=== PATIENT | female | born 1990 | race Caucasian/White ===

== ENCOUNTER 2023-08-02 11:50 | Emergency (ER) | payer BC ==
--- OUTSIDE RECORDS SUMMARY | 2023-08-02 11:55 | XMS REPORT | Continuity of Care Document ---
Author Name Unknown Address [address] [facility] [address] [place] [address] [facility] Address [address] [facility] [place] [address] Care Team Providers Care Refrigerator Glazier Name Role Phone CAMERON PEREZ Attending Clinician Un[facility]ending [facility]ician Mitzy Rashid Attending Clinician Unavailable Luis F_S Attending Clinician Unavailable DERRICK CONTRERAS Attending Clinician Unavailable RICHARD MCBRIDE Attending Clinician Unavailab RICHARD Thompson Attending Clinician Unavaila DEBI Ngo Attending Clinician Unavailable Luz Attending Clinician Unavailable Jose_Mila Attending Clinician Unavailable ZHENG Attending Clinician Unavailable NEREIDA MONDRAGON Attending Clinician Unavailable Eligio Attending Clinician Unavailable Allie Berry Attending Clinician Unavailable PROVIDER, ED TEMP Attending Clinician Unavailnatalia e Evans_S Admitting Clinician Unavailable Luz Admitting Clinician Unavailable Jose_W Admitting Clinician Unavailable ZHENG Admitting Clinician Unavailable Marquitaledge_L Admitting Clinician Unavailable Payers Payer Name Policy Type Policy Number Effective Date Expirati on Date Source [place] [id number] 2020 00:[place] [id number] 2020 00[place] [id number] 2020 00:00:00 Problems Condition Name Condition Details Condition Category Status Onset Date Resolution Date Last Treatment Date Treating Clinician Comments Source Pain of left ankle joint Pain of Left Ankle Joint Problem Active 2022-08 0-27 00:00: 00 [facility] COVID-19 Covid-19 Problem Active 9-05 00:00: 00 [facility] Pain of left hip joint Pain of Left Hip Joint Problem Active 5-05 00:00: 00 [facility] Migraine with aura Migraine with Aura Problem Active 9-07 00:00: 00 [facility] Neck pain Neck Pain Problem Active 9-07 00:00: 00 [facility] Nausea and vomiting Nausea and Vomiting Problem Active 9-07 00:00: 00 [facility] Viral screening Viral Screening Problem Active 5-03 00:00: 00 [facility] Asthma Asthma Problem Active 3-10 00:00: 00 [facility] Polycystic ovary syndrome Polycystic Ovary Syndrome Problem Active 3-10 00:00: 00 [facility] Exposure to SARS-CoV-2 Exposure to SARS-CoV-2 Problem Active 1-01 00:00: 00 [facility] Problem No known problems ASSERTION [facility] ETD (eustachia n tube dysfunctio n) ETD (eustachia n tube dysfunctio n) Problem Active [facility] ent [facility] Chronic sinusitis Chronic sinusitis Problem Active [facility] ent [facility] Allergic rhinitis Allergic rhinitis Problem [facility] Attention deficit hyperactiv ity disorder (ADHD), predominan tly inattentiv e type Attention deficit hyperactiv ity disorder (ADHD), predominan tly inattentiv e type Problem Active [facility] ent [facility] Environmen rosa allergies Environmen rosa allergies Problem Active [facility] Situationa l depression Situationa l depression Problem Active [facility] ent [facility] PCOS (polycysti c ovarian syndrome) PCOS (polycysti c ovarian syndrome) Problem Active [facility] ent [facility] Amenorrhea Amenorrhea Problem Active [facility] Atypical migraine Atypical migraine Problem Active [facility] Insulin resistance Insulin resistance Problem Active [facility] Anxiety Anxiety Problem Active [facility] Hypoglycem ia Hypoglycem ia Problem Active [facility] Allergies, Adverse Reactions, Alerts Allergy Name Allergy Type Status Severity Reaction(s) Onset Date Inactive Date Treating Clinician Comments Source No Known Drug Allergie s Allergy to Substanc e Active 01-09 00:00: 00 [facility] House Dust Allergy to substanc e Active Moderate, Moderate, Moderate to severe, Mild to moderate Cough, Hives, Itching, Wheezing [facility] Social History Smoking Status Start Date Stop Date Source Unknown if ever smoked [facility] Never Smoker [facility] Medications Ordered Medication Name Filled Medication Name Start Date Stop Date Current Medication? Ordering Clinician Indication Dosage Frequency Signature (SIG) Comments Components Source promethazin e 25 mg/mL injection solutionTak e 1 mL by injection route. promethazin e 25 mg/mL injection solutionTak e 1 mL by injection route. 05-02 14:16: 00 No promethazi ne 25 mg/mL injection solutionTa ke 1 mL by injection route. [facility] ketorolac 60 mg/2 mL intramuscul ar solutionInj ect 1 mL by intramuscul ar route. ketorolac 60 mg/2 mL intramuscul ar solutionInj ect 1 mL by intramuscul ar route. 05-02 14:15: 00 No ketorolac 60 mg/2 mL intramuscu lar solutionIn ject 1 mL by intramuscu lar route. [facility] Glucometer (any brand) and supplies Glucometer (any brand) and supplies 2017-08 00:00: 00 Yes Mitzy Ulloa Use as directed [facility] ent Clinics atorvastati n 20 mg tablet TAKE 1 TABLET BY MOUTH EVERY DAY atorvastati n 20 mg tablet TAKE 1 TABLET BY MOUTH EVERY DAY No atorvastat in 20 mg tablet TAKE 1 TABLET BY MOUTH EVERY DAY [facility] Dexilant 60 mg capsule, delayed release Take 1 capsule every day by oral route. Dexilant 60 mg capsule, delayed release Take 1 capsule every day by oral route. No 1capsul e(s) Q1D Dexilant 60 mg capsule, delayed release Take 1 capsule every day by oral route. [facility] ketorolac 60 mg/2 mL intramuscul ar solution Inject 1 mL by intramuscul ar route. ketorolac 60 mg/2 mL intramuscul ar solution Inject 1 mL by intramuscul ar route. No 1mL ketorolac 60 mg/2 mL intramuscu lar solution Inject 1 mL by intramuscu lar route. [facility] prednisone 20 mg tablet Take 1 tablet daily po x 3 days then 1/2 tablet daily po x 5 days prednisone 20 mg tablet Take 1 tablet daily po x 3 days then 1/2 tablet daily po x 5 days No prednisone 20 mg tablet Take 1 tablet daily po x 3 days then 1/2 tablet daily po x 5 days [facility] promethazin e 25 mg tablet Take 1 tablet every 8 hours by oral route as needed. promethazin e 25 mg tablet Take 1 tablet every 8 hours by oral route as needed. No 1 Q8H promethazi ne 25 mg tablet Take 1 tablet every 8 hours by oral route as needed. [facility] promethazin e 25 mg/mL injection solution Take 1 mL by injection route. promethazin e 25 mg/mL injection solution Take 1 mL by injection route. No 1mL promethazi ne 25 mg/mL injection solution Take 1 mL by injection route. [facility] propranolol ER 80 mg capsule,24 hr,extended release TAKE 1 CAPSULE BY MOUTH EVERY DAY propranolol ER 80 mg capsule,24 hr,extended release TAKE 1 CAPSULE BY MOUTH EVERY DAY No propranolo l ER 80 mg capsule,24 hr,extende d release TAKE 1 CAPSULE BY MOUTH EVERY DAY [facility] sumatriptan 25 mg tablet Take 1 tablet every day by oral route. sumatriptan 25 mg tablet Take 1 tablet every day by oral route. No 1 Q1D sumatripta n 25 mg tablet Take 1 tablet every day by oral route. [facility] tizanidine 4 mg tablet TAKE 1 TABLET BY MOUTH EVERY DAY AT BEDTIME tizanidine 4 mg tablet TAKE 1 TABLET BY MOUTH EVERY DAY AT BEDTIME No tizanidine 4 mg tablet TAKE 1 TABLET BY MOUTH EVERY DAY AT BEDTIME [facility] Zyrtec 10 mg tablet Take 1 tablet every day by oral route. Zyrtec 10 mg tablet Take 1 tablet every day by oral route. No 1 Q1D Zyrtec 10 mg tablet Take 1 tablet every day by oral route. [facility] pantoprazol e 40 mg tablet,grisel yed release TAKE 1 TABLET BY MOUTH EVERY DAY. TAKE 30 MINS BEFORE BREAKFAST OR FIRST MEAL OF THE DAY pantoprazol e 40 mg tablet,grisel yed release TAKE 1 TABLET BY MOUTH EVERY DAY. TAKE 30 MINS BEFORE BREAKFAST OR FIRST MEAL OF THE DAY No pantoprazo le 40 mg tablet,del ayed release TAKE 1 TABLET BY MOUTH EVERY DAY. TAKE 30 MINS BEFORE BREAKFAST OR FIRST MEAL OF THE DAY [facility] propranolol ER 120 mg capsule,24 hr,extended release Take 1 capsule every day by oral route. propranolol ER 120 mg capsule,24 hr,extended release Take 1 capsule every day by oral route. No 1capsul e(s) Q1D propranolo l ER 120 mg capsule,24 hr,extende d release Take 1 capsule every day by oral route. [facility] propranolol ER 80 mg capsule,24 hr,extended release TAKE 1 CAPSULE BY MOUTH EVERY DAY propranolol ER 80 mg capsule,24 hr,extended release TAKE 1 CAPSULE BY MOUTH EVERY DAY No propranolo l ER 80 mg capsule,24 hr,extende d release TAKE 1 CAPSULE BY MOUTH EVERY DAY [facility] sumatriptan 100 mg tablet TAKE 1 TABLET BY MOUTH AT ONSET OF HEADACHE. MAY REPEAT 1 TIME AFTER 2 HOURS NEEDED sumatriptan 100 mg tablet TAKE 1 TABLET BY MOUTH AT ONSET OF HEADACHE. MAY REPEAT 1 TIME AFTER 2 HOURS NEEDED No sumatripta n 100 mg tablet TAKE 1 TABLET BY MOUTH AT ONSET OF HEADACHE. MAY REPEAT 1 TIME AFTER 2 HOURS NEEDED [facility] sumatriptan 25 mg tablet Take 1 tablet every day by oral route. sumatriptan 25 mg tablet Take 1 tablet every day by oral route. No 1 Q1D sumatripta n 25 mg tablet Take 1 tablet every day by oral route. [facility] tizanidine 4 mg tablet TAKE 2 TABLETS BY MOUTH EVERY DAY AT BEDTIME NEEDED tizanidine 4 mg tablet TAKE 2 TABLETS BY MOUTH EVERY DAY AT BEDTIME NEEDED No tizanidine 4 mg tablet TAKE 2 TABLETS BY MOUTH EVERY DAY AT BEDTIME NEEDED [facility] azithromyci n 250 mg tablet TAKE 2 TABLETS (500 MG) BY ORAL ROUTE ONCE DAILY FOR 1 DAY THEN 1 TABLET (250 MG) BY ORAL ROUTE ONCE DAILY FOR 4 DAYS azithromyci n 250 mg tablet TAKE 2 TABLETS (500 MG) BY ORAL ROUTE ONCE DAILY FOR 1 DAY THEN 1 TABLET (250 MG) BY ORAL ROUTE ONCE DAILY FOR 4 DAYS No azithromyc in 250 mg tablet TAKE 2 TABLETS (500 MG) BY ORAL ROUTE ONCE DAILY FOR 1 DAY THEN 1 TABLET (250 MG) BY ORAL ROUTE ONCE DAILY FOR 4 DAYS [facility] benzonatate 200 mg capsule Take 1 capsule 3 times a day by oral route as needed. benzonatate 200 mg capsule Take 1 capsule 3 times a day by oral route as needed. No 1capsul e(s) TID benzonatat e 200 mg capsule Take 1 capsule 3 times a day by oral route as needed. [facility] dexamethaso ne 6 mg tablet Take 1 tablet every day by oral route. dexamethaso ne 6 mg tablet Take 1 tablet every day by oral route. No 1 Q1D dexamethas one 6 mg tablet Take 1 tablet every day by oral route. [facility] pantoprazol e 40 mg tablet,grisel yed release TAKE 1 TABLET BY MOUTH EVERY DAY. TAKE 30 MINS BEFORE BREAKFAST OR FIRST MEAL OF THE DAY pantoprazol e 40 mg tablet,grisel yed release TAKE 1 TABLET BY MOUTH EVERY DAY. TAKE 30 MINS BEFORE BREAKFAST OR FIRST MEAL OF THE DAY No pantoprazo le 40 mg tablet,del ayed release TAKE 1 TABLET BY MOUTH EVERY DAY. TAKE 30 MINS BEFORE BREAKFAST OR FIRST MEAL OF THE DAY [facility] propranolol ER 120 mg capsule,24 hr,extended release TAKE 1 CAPSULE BY MOUTH EVERY DAY propranolol ER 120 mg capsule,24 hr,extended release TAKE 1 CAPSULE BY MOUTH EVERY DAY No propranolo l ER 120 mg capsule,24 hr,extende d release TAKE 1 CAPSULE BY MOUTH EVERY DAY [facility] sumatriptan 100 mg tablet TAKE 1 TABLET BY MOUTH AT ONSET OF HEADACHE. MAY REPEAT 1 TIME AFTER 2 HOURS NEEDED sumatriptan 100 mg tablet TAKE 1 TABLET BY MOUTH AT ONSET OF HEADACHE. MAY REPEAT 1 TIME AFTER 2 HOURS NEEDED No sumatripta n 100 mg tablet TAKE 1 TABLET BY MOUTH AT ONSET OF HEADACHE. MAY REPEAT 1 TIME AFTER 2 HOURS NEEDED [facility] sumatriptan 25 mg tablet Take 1 tablet every day by oral route. sumatriptan 25 mg tablet Take 1 tablet every day by oral route. No 1 Q1D sumatripta n 25 mg tablet Take 1 tablet every day by oral route. [facility] tizanidine 4 mg tablet TAKE 2 TABLETS BY MOUTH EVERY DAY AT BEDTIME NEEDED tizanidine 4 mg tablet TAKE 2 TABLETS BY MOUTH EVERY DAY AT BEDTIME NEEDED No tizanidine 4 mg tablet TAKE 2 TABLETS BY MOUTH EVERY DAY AT BEDTIME NEEDED [facility] dexlansopra zole 60 mg capsule,bip hase delayed release TAKE 1 CAPSULE BY MOUTH DAILY dexlansopra zole 60 mg capsule,bip hase delayed release TAKE 1 CAPSULE BY MOUTH DAILY No dexlansopr azole 60 mg capsule,bi phase delayed release TAKE 1 CAPSULE BY MOUTH DAILY [facility] methylpredn isolone 4 mg tablets in a dose pack FOLLOW PACKAGE DIRECTIONS methylpredn isolone 4 mg tablets in a dose pack FOLLOW PACKAGE DIRECTIONS No methylpred nisolone 4 mg tablets in a dose pack FOLLOW PACKAGE DIRECTIONS [facility] propranolol ER 120 mg capsule,24 hr,extended release TAKE 1 CAPSULE BY MOUTH EVERY DAY propranolol ER 120 mg capsule,24 hr,extended release TAKE 1 CAPSULE BY MOUTH EVERY DAY No propranolo l ER 120 mg capsule,24 hr,extende d release TAKE 1 CAPSULE BY MOUTH EVERY DAY [facility] sumatriptan 100 mg tablet TAKE 1 TABLET BY MOUTH AT ONSET OF HEADACHE. MAY REPEAT 1 TIME AFTER 2 HOURS NEEDED sumatriptan 100 mg tablet TAKE 1 TABLET BY MOUTH AT ONSET OF HEADACHE. MAY REPEAT 1 TIME AFTER 2 HOURS NEEDED No sumatripta n 100 mg tablet TAKE 1 TABLET BY MOUTH AT ONSET OF HEADACHE. MAY REPEAT 1 TIME AFTER 2 HOURS NEEDED [facility] tizanidine 4 mg tablet TAKE 2 TABLETS BY MOUTH EVERY DAY AT BEDTIME NEEDED tizanidine 4 mg tablet TAKE 2 TABLETS BY MOUTH EVERY DAY AT BEDTIME NEEDED No tizanidine 4 mg tablet TAKE 2 TABLETS BY MOUTH EVERY DAY AT BEDTIME NEEDED [facility] buspirone 10 mg tablet TAKE 1 TABLET BY MOUTH TWICE DAILY buspirone 10 mg tablet TAKE 1 TABLET BY MOUTH TWICE DAILY No buspirone 10 mg tablet TAKE 1 TABLET BY MOUTH TWICE DAILY [facility] dextroamphe tamine-amph etamine ER 10 mg 24hr capsule,ext end release dextroamphe tamine-amph etamine ER 10 mg 24hr capsule,ext end release No dextroamph etamine-am phetamine ER 10 mg 24hr capsule,ex tend release [facility] lorazepam 0.5 mg tablet TAKE 1 TABLET BY MOUTH EVERY 6 HOURS IF NEEDED FOR ANXIETY lorazepam 0.5 mg tablet TAKE 1 TABLET BY MOUTH EVERY 6 HOURS IF NEEDED FOR ANXIETY No lorazepam 0.5 mg tablet TAKE 1 TABLET BY MOUTH EVERY 6 HOURS IF NEEDED FOR ANXIETY [facility] metformin ER 500 mg tablet,exte nded release 24 hr TAKE 1 TABLET BY MOUTH EVERY DAY. metformin ER 500 mg tablet,exte nded release 24 hr TAKE 1 TABLET BY MOUTH EVERY DAY. No metformin ER 500 mg tablet,ext ended release 24 hr TAKE 1 TABLET BY MOUTH EVERY DAY. [facility] propranolol ER 60 mg capsule,24 hr,extended release TAKE 1 CAPSULE BY MOUTH EVERY DAY propranolol ER 60 mg capsule,24 hr,extended release TAKE 1 CAPSULE BY MOUTH EVERY DAY No propranolo l ER 60 mg capsule,24 hr,extende d release TAKE 1 CAPSULE BY MOUTH EVERY DAY [facility] Immunizations Ordered Immunization Name Filled Immunization Name Date Status Comments Source Tdap Tdap 2020-02-17 14:51:18 Completed [facility] Tdap Tdap 2020-02-17 00:00:00 Completed [facility] Tdap Tdap 2020-02-17 00:00:00 Completed [facility] Tdap Tdap Unknown Completed [facility] Vital Signs Vital Name Observation Time Observation Value Comments S ource BP Systolic 2023-06-21 00:00:00 118 mm[Hg] [facility] Body Weight 2023-06-21 00:00:00 3776 [oz_av] [facility] BMI (Body Mass Index) 2023-06-21 00:00:00 33.9 kg/m2 [facility] Height 2023-06-21 00:00:00 70 [in_i] [facility] BP Diastolic 2023-06-21 00:00:00 92 mm[Hg] [facility] Body Weight 2023-04-30 00:00:00 3776 [oz_av] [facility] Height 2023-04-30 00:00:00 70 [in_i] [facility] BMI (Body Mass Index) 2023-04-30 00:00:00 33.9 kg/m2 [facility] BP Diastolic 2022-12-28 00:00:00 69 mm[Hg] [facility] Height 2022-12-28 00:00:00 70 [in_i] [facility] BMI (Body Mass Index) 2022-12-28 00:00:00 33.9 kg/m2 [facility] BP Systolic 2022-12-28 00:00:00 96 mm[Hg] [facility] Body Weight 2022-12-28 00:00:00 3776 [oz_av] [facility] BP Diastolic 2022-05-02 00:00:00 81 mm[Hg] [facility] Height 2022-05-02 00:00:00 70 [in_i] [facility] BMI (Body Mass Index) 2022-05-02 00:00:00 33.4 kg/m2 [facility] BP Systolic 2022-05-02 00:00:00 114 mm[Hg] [facility] Body Weight 2022-05-02 00:00:00 3728 [oz_av] [facility] BP Diastolic 2022-03-23 00:00:00 76 mm[Hg] [facility] Height 2022-03-23 00:00:00 70 [in_i] [facility] BMI (Body Mass Index) 2022-03-23 00:00:00 34.1 kg/m2 [facility] BP Systolic 2022-03-23 00:00:00 109 mm[Hg] [facility] Body Weight 2022-03-23 00:00:00 3808 [oz_av] [facility] BP Diastolic 2021-12-28 00:00:00 81 mm[Hg] [facility] Height 2021-12-28 00:00:00 70 [in_i] [facility] BMI (Body Mass Index) 2021-12-28 00:00:00 34.6 kg/m2 [facility] BP Systolic 2021-12-28 00:00:00 117 mm[Hg] [facility] Body Weight 2021-12-28 00:00:00 241.3 [lb_av] [facility] BP Diastolic 2021-12-26 00:00:00 84 mm[Hg] [facility] Height 2021-12-26 00:00:00 70 [in_i] [facility] BMI (Body Mass Index) 2021-12-26 00:00:00 34.4 kg/m2 [facility] BP Systolic 2021-12-26 00:00:00 115 mm[Hg] [facility] Body Weight 2021-12-26 00:00:00 3840 [oz_av] [facility] BP Diastolic 2021-12-07 00:00:00 77 mm[Hg] [facility] Height 2021-12-07 00:00:00 70 [in_i] [facility] BMI (Body Mass Index) 2021-12-07 00:00:00 34.3 kg/m2 [facility] BP Systolic 2021-12-07 00:00:00 105 mm[Hg] [facility] Body Weight 2021-12-07 00:00:00 3824 [oz_av] [facility] BP Diastolic 2021-12-06 00:00:00 84 mm[Hg] [facility] Height 2021-12-06 00:00:00 70 [in_i] [facility] BMI (Body Mass Index) 2021-12-06 00:00:00 34.7 kg/m2 [facility] BP Systolic 2021-12-06 00:00:00 132 mm[Hg] [facility] Body Weight 2021-12-06 00:00:00 242 [lb_av] [facility] BP Diastolic 2021-11-02 00:00:00 72 mm[Hg] [facility] Height 2021-11-02 00:00:00 70 [in_i] [facility] BMI (Body Mass Index) 2021-11-02 00:00:00 34.1 kg/m2 [facility] BP Systolic 2021-11-02 00:00:00 105 mm[Hg] [facility] Body Weight 2021-11-02 00:00:00 3808 [oz_av] [facility] Height 2021-09-06 00:00:00 70 [in_i] [facility] BMI (Body Mass Index) 2021-09-06 00:00:00 32.9 kg/m2 [facility] Body Weight 2021-09-06 00:00:00 3664 [oz_av] [facility] Height 2021-08-24 00:00:00 70 [in_i] [facility] BMI (Body Mass Index) 2021-08-24 00:00:00 32.9 kg/m2 [facility] Body Weight 2021-08-24 00:00:00 3664 [oz_av] [facility] BP Diastolic 2021-06-30 00:00:00 89 mm[Hg] [facility] Height 2021-06-30 00:00:00 70 [in_i] [facility] BMI (Body Mass Index) 2021-06-30 00:00:00 32.9 kg/m2 [facility] BP Systolic 2021-06-30 00:00:00 132 mm[Hg] [facility] Body Weight 2021-06-30 00:00:00 229 [lb_av] [facility] BP Diastolic 2021-05-22 00:00:00 87 mm[Hg] [facility] Height 2021-05-22 00:00:00 70 [in_i] [facility] BMI (Body Mass Index) 2021-05-22 00:00:00 32.2 kg/m2 [facility] BP Systolic 2021-05-22 00:00:00 121 mm[Hg] [facility] Body Weight 2021-05-22 00:00:00 3593 [oz_av] [facility] Height 2021-06-28 12:03:18 [facility] Weight Measured 2021-06-28 12:03:[address] [facility] Body Temperature 2021-06-28 12:03:[address] [facility] Heart Rate 2021-06-28 12:03:18 [facility] Respiratory Rate 2021-06-28 12:03:[address] [facility] O2 % BldC Oximetry 2021-06-28 12:03:[address] [facility] BP Systolic 2021-06-28 12:03:[address] [facility] BP Diastolic 2021-06-28 12:03:18 [facility] BMI (Body Mass Index) 2021-06-28 12:03:18 [facility] Procedures Procedure Date / Time Performed Performing Clinicia n Source XR, ankle, 3 or more view 2023-06-21 00:00:00 [facility] MRI, cervical spine, w/o contrast 2022-05-02 00:00:00 [facility] MRI, internal auditory canal, w/wo contrast 2021-12-06 00:00:00 [facility] Upper GI Endoscopy 2021-11-23 00:00:00 [facility] Unlisted Px Accessory Sinus 2017-08-26 00:00:00 [facility] Extraction of [place] Tooth [facility] Sinusotomy, Multiple [facility] Plan of Care Planned Activity Planned Date Details Comments Source Diagnostic Test Pending 2021-11-02 00:00:00 SARS CoV 2 RNA (COVID-19), QL, programs director-PCR, respiratory specimen [code = SARS CoV 2 RNA (COVID-19), QL, programs director-PCR, respiratory specimen] [facility] Outreach Program Instructions [facility] Encounters Start Date/Time End Date/Time Encounter Type Admission Type Attending Clinicians Care Facility Care Department Encounter ID Source 2023-06-24 10:30:00 Inpatient CAMERON RICKS [facility] [id number] [facility] 2023-06-11 10:30:00 Inpatient CAMERON RICKS [facility] [id number] [facility] 2023-01-01 09:15:39 Outpatient [facility] [id number] [facility] 2021-09-20 11:52:01 Outpatient Out of, [id number] [facility] Clinics 2021-09-20 11:05:06 [id number] [facility] Clin[facility] 2023-07-10 00:00:00 2023-07-10 00:00:00 Outpatient Evans_S [facility] [id number] [facility] 2023-06-21 00:00:00 2023-06-21 00:00:00 Outpatient Evans_S MMG [id number] [facility] 2023-06-21 00:00:00 2023-06-21 00:00:00 Outpatient Evans_S MMG [id number] [facility] 2023-06-21 00:00:00 2023-06-21 00:00:00 MANASA SerranoC: [address], [address], [place] [address] , Ph. MMG [facility] [facility] [id number] [facility] 2023-04-30 00:00:00 2023-04-30 00:00:00 MANASA SerranoC: [address], [address], [place] [address] , Ph. MMG [facility] [id number] [facility] 2023-02-14 15:30:00 2023-02-14 15:30:00 Outpatient DERRICK CONTRERAS [facility] [id number] [facility] 2023-02-11 14:00:00 2023-02-11 14:00:00 Outpatient DERRICK CONTRERAS [facility] [id number] [facility] 2023-01-15 09:31:00 2023-01-23 23:59:00 ambulatory [id number] [id number] [id number]-80c [id number] bcd [id number] 2023-01-15 09:31:00 2023-01-23 00:01:00 Outpatient RICHARD SANTIAGO [facility] [id number] [facility] 2023-01-12 00:00:00 2023-01-12 00:00:00 Outpatient Evans_S MMG [facility] [id number] 0905 [facility] 2022-12-28 00:00:00 2022-12-28 00:00:00 Outpatient Evans_S MMG [facility] [id number] [facility] 2022-12-28 00:00:00 2022-12-28 00:00:00 MINDY Serrano: [address] [place] [address], [address], [place] [address] , Ph. MMG [place] - [facility] [id number] [facility] 2022-06-28 11:00:00 2022-07-25 23:59:00 ambulatory [id number] -80cd-[id number] [id number] [id number]-80c [id number] d [id number] 2022-06-28 11:00:00 2022-07-25 00:01:00 Outpatient GERI RICHARD NAVA [facility] [id number] [facility] 2022-06-26 06:49:00 2022-06-26 06:49:00 Outpatient GERI FordeNAVARICHARD MAIN [facility] [id number] [facility] 2022-06-21 10:00:00 2022-06-25 23:59:00 ambulatory [id number]-[id number] [id number]-80c [id number] d [id number] 2022-06-21 10:00:00 2022-06-25 00:01:00 Outpatient GERI RICHARD NAVA [facility] [id number] [facility] 2022-06-19 10:00:00 2022-06-19 10:00:00 Outpatient GERI RICHARD NAVA [facility] [id number] [facility] 2022-06-14 10:00:00 2022-06-14 10:00:00 Outpatient RICHARD JACKMAN [facility] [id number] [facility] 2022-06-12 10:00:00 2022-06-12 10:00:00 Outpatient RICHARD JACKMAN [facility] [id number] [facility] 2022-06-05 14:00:00 2022-06-05 14:00:00 Outpatient RICHARD JACKMAN [facility] [id number] [facility] 2022-06-01 14:00:00 2022-06-01 14:00:00 Outpatient RICHARD JACKMAN [facility] [id number] [facility] 2022-05-23 13:07:00 2022-05-25 23:59:00 ambulatory [id number] -80cd-[id number] [id number] bcd [id number] 2022-05-07 00:00:00 2022-05-07 00:00:00 Outpatient Zuniga_S [facility] [id number] 0912 [facility] 2022-05-02 00:00:00 2022-05-02 00:00:00 Outpatient Zuniga_S [facility]G [facility] [id number] [facility] 2022-05-02 00:00:00 2022-05-02 00:00:00 MINDY Jorge: [address] [place] [phone] , Ph. MMG AL - [facility] [id number] [facility] 2022-03-29 10:10:00 2022-03-29 10:10:00 Outpatient DEBI MANSFIELD [facility] [id number] [facility] 2022-03-23 00:00:00 2022-03-23 00:00:00 MANASA JorgeC: [address], [place] [address] , Ph. Zuniga_S MMG [facility] 0729 [facility] 2022-01-13 00:00:00 2022-01-13 00:00:00 Outpatient Zuniga_S MMG MMG 05 [facility] 2022-01-01 03:25:00 2022-01-01 03:25:00 Outpatient Zuniga_S MMG MMG 0509 [facility] 2021-12-28 00:00:00 2021-12-28 00:00:00 Tez Garcia MD: [address], [address], [place] [address] , Ph. [facility] 0505 [facility] 2021-12-26 00:00:00 2021-12-26 00:00:00 MANASA JorgeC: [address], [place] [address] , Ph. Zuniga_S MMG [facility] 0503 [facility] 2021-12-19 01:51:00 2021-12-19 01:51:00 Outpatient Shield MMG MMG 0426 [facility] 2021-12-13 11:42:00 2021-12-13 11:42:00 Outpatient Shield MMG MMG 042 [facility] 2021-12-07 00:00:00 2021-12-07 00:00:00 Debi Carmona NP: [address], [place] [address] , Ph. Luz [facility] 0414 [facility] 2021-12-06 00:00:00 2021-12-06 00:00:00 Tez Garcia MD: [address], [address], [place] [address] , [facility]. [facility] 412 [facility] 2021-11-02 04:58:00 2021-11-02 04:58:00 Outpatient [facility] 2021-11-02 00:00:00 2021-11-02 00:00:00 Michael Coronel: [address] [place] [address] , Ph. [facility] [id number] [facility] 2021-11-01 05:19:00 2021-11-01 05:19:00 Outpatient [facility] 2021-09-06 00:00:00 2021-09-06 00:00:00 MANASA JorgeC: [address], [place] [address] , Ph. [facility]en [facility] [facility] 2021-08-24 00:00:00 2021-08-24 00:00:00 MANASA JorgeC: [address], [place] [address] , Ph. Zuniga_S [facility] 1230 [facility] 2021-08-02 11:02:00 2021-08-02 11:02:00 Outpatient NREEIDA ROGERS [facility] [id number] [facility] 2021-06-30 00:00:00 2021-06-30 00:00:00 Amanda Molina MD: [address], [place] [address] , Ph. [phone] Jesse_Warren [facility] 1105 [facility] 2021-05-22 00:00:00 2021-05-22 00:00:00 Debi Carmona NP: [address], [place] [address] , Ph. Luz [facility] 0927 [facility] 2020-03-22 13:00:00 2020-03-22 13:00:00 [facility]patient [facility] [id number] [facility] 2020-03-14 11:34:00 2020-03-14 11:34:00 Outpatient [facility] [id number] [facility] Clinics 2020-03-14 11:00:00 2020-03-14 11:00:[address] [facility] [facility] [id number] 2020-02-18 10:40:00 2020-02-18 10:40:00 Outpatient MEHOP [facility] [id number] [facility] 2020-02-17 04:50:00 2020-02-17 04:50:00 Outpatient CAHOP [facility] [id number] [facility] 2020-02-17 00:00:00 2020-02-17 00:00:00 Esme Redmond MD: [address] [place] [address] , Ph. [facility] [id number] [facility] 2020-02-16 01:24:00 2020-02-16 01:24:00 Outpatient [facility] [id number] [facility] 2019-10-13 15:30:00 2019-10-13 15:30:00 Outpatient [facility] [id number] [facility] ent Clinics 2019-09-28 12:00:00 2019-09-28 12:00:00 Outpatient [facility] [id number] [facility] ent Clinics 2019-01-11 11:00:00 2019-01-11 14:08:00 Departed Emergency ER PROVIDER, ED [id number]. [id number] [id number]. 1.2 [facility] [id number] [facility]) 2019-01-09 12:00:00 2019-01-09 12:00:00 Registered Surgical Day Care Allie Guardado 2.16.840. [id number]. 3.4991.3. 1.2 [facility] [id number] 90 [facility]) 2018-12-24 08:25:00 2018-12-24 08:25:00 Registered Clinical 2.16.840. [id number] 3.4991.3. .2 REFERENCE LAB [id number] 44 [facility] 2018-12-17 12:54:00 2018-12-17 12:54:00 Registered Clinical 2.16.840. [id number]. 3.4991.3. .2 REFERENCE LAB [id number] 70 [facility] Results Test Description Test Time Test Comments Results Result Co mments Source [facility]CoV+SARS-CoV-2 (COVID-19) Ag [Presence] in Respiratory specimen by Rapid [id number] 14:44:00* Test Item Value Reference Range Interpretation Comme nts SARS-CoV - 2 (test code = SA RS-CoV - 2) negative [facility]-CoV+SARS-CoV-2 (COVID-19) Ag [Presence] in Respiratory specimen by Rapid [id number] 14:44:00* Test Item Value Reference Range Interpretation Comme nts SARS-CoV - 2 (test code = SA RS-CoV - 2) negative [facility] GroupUrinalysis complete panel - [id number] 08:39:00* Test Item Value Reference Range Interpretation Comme nts Color of Urine by Auto (test code = 35707-5) yellow Appearance of Urine (test co de = 5767-9) clear clear Glucose [Presence] in Urine by Automated test strip (test code = 31304-2) negative negative Bilirubin.total [Mass/volume ] in Urine (test code = 1978-6) negative negative Ketones [Mass/volume] in Uri ne by Automated test strip (test code = 22500-8) negative negative Specific gravity of Urine by Automated test strip (test code = 70624-2) 1.031 1.003-1.030 H blood urine (test code = blo od urine) negative negative pH of Urine (test code = 2756-5) 6.000 5-9 protein urine (UA) (test cod e = protein urine (UA)) trace negative Urobilinogen [Presence] in Urine (test code = 33546-2) normal 0.2-1.0 Nitrite [Presence] in Urine by Test strip (test code = 5802-4) negative negative Leukocyte esterase [Presence ] in Urine by Automated test strip (test code = 68827-1) negative negative Erythrocytes [#/volume] in Urine by Automated count (test code = 798-9) =1-5 0-5 Leukocytes [#/area] in Urine sediment by Automated count (test code = 39581-0) =1-5 0-5 Epithelial cells [Presence] in Urine sediment by Light microscopy (test code = 98239-3) =1-5 0-5 Bacteria identified in Urine by Culture (test code = 630-4) none detected none detect Casts [#/area] in Urine sediment by Automated count (test code = 82421-2) =6-10 none detect H urine culture added? (test c ode = urine culture added?) no [facility] 2000 [facility] - Serum or Plasma 2021-12-07 08:39:00* Test Item Value Reference Range Interpretation Comme nts Glucose [Mass/volume] in Ser um or Plasma (test code = 2345-7) 92 mg/dL 74-106 Urea nitrogen [Mass/volume] in Serum or Plasma (test code = 3094-0) 9 mg/dL 6-20 osmolality calculated,serum (test code = osmolality calculated,serum) 276 mOsm/kg 280-300 L creatinine (test code = creatinine) 0.80 mg/dL 0.50-0.90 glomerular filtration rate ( test code = glomerular filtration rate) >60.00 Urea nitrogen/Creatinine [Ma ss Ratio] in Serum or Plasma (test code = 3097-3) 11.3 12.0-20.0 L sodium level (test code = so dium level) 139 mmol/L 135-145 potassium level (test code = potassium level) 4.4 mmol/L 3.5-5.2 chloride level (test code = chloride level) 103 mmol/L 98-108 CO2 (test code = CO2) 25 mmol/L 21-32 anion gap (test code = anion gap) 15.4 mEq/L 12.0-20.0 calcium level (test code = calcium level) 9.5 mg/dL 8.6-10.0 total protein (test code = t otal protein) 7.3 g/dL 6.6-8.7 albumin (test code = albumin) 4.5 g/dL 3.5-5.2 globulin (test code = globulin) 2.8 g/dL 1.5-4.5 A/G ratio (test code = A/G ratio) 1.6 >1.0 bilirubin,total (test code = bilirubin,total) 0.4 mg/dL 0.0-1.2 AST/SGOT (test code = AST/SGOT) 21 U/L 15-32 Alanine aminotransferase [Enzymatic activity/volume] in Serum or Plasma (test code = 1742-6) 33 U/L 0-33 Alkaline phosphatase [Enzyma tic activity/volume] in Serum or Plasma (test code = 6768-6) 50 U/L 35-105 [facility] 1996 panel - Serum or [id number] 08:39:00* Test Item Value Reference Range Interpretation Comme nts cholesterol level (test code = cholesterol level) 271 mg/dL 150-200 H triglycerides level (test co de = triglycerides level) 338 mg/dL <150 H HDL cholesterol (test code = HDL cholesterol) 39 mg/dL >65 L LDL cholesterol direct (test code = LDL cholesterol direct) 191 mg/dL <100 H cholesterol risk ratio (test code = cholesterol risk ratio) 6.948 [facility] HospitalUrinalysis complete panel - [id number] 08:39:00* Test Item Value Reference Range Interpretation Comme nts Color of Urine by Auto (test code = 67297-5) yellow Appearance of Urine (test co de = 5767-9) clear clear Glucose [Presence] in Urine by Automated test strip (test code = 48143-9) negative negative Bilirubin.total [Mass/volume ] in Urine (test code = 1978-6) negative negative Ketones [Mass/volume] in Uri ne by Automated test strip (test code = 43101-0) negative negative Specific gravity of Urine by Automated test strip (test code = 93528-9) 1.031 1.003-1.030 H blood urine (test code = blo od urine) negative negative pH of Urine (test code = 2756-5) 6.000 5-9 protein urine (UA) (test cod e = protein urine (UA)) trace negative Urobilinogen [Presence] in Urine (test code = 12792-7) normal 0.2-1.0 Nitrite [Presence] in Urine by Test strip (test code = 5802-4) negative negative Leukocyte esterase [Presence ] in Urine by Automated test strip (test code = 07248-3) negative negative Erythrocytes [#/volume] in Urine by Automated count (test code = 798-9) =1-5 0-5 Leukocytes [#/area] in Urine sediment by Automated count (test code = 16239-9) =1-5 0-5 Epithelial cells [Presence] in Urine sediment by Light microscopy (test code = 98924-0) =1-5 0-5 Bacteria identified in Urine by Culture (test code = 630-4) none detected none detect Casts [#/area] in Urine sediment by Automated count (test code = 42709-6) =6-10 none detect H urine culture added? (test c ode = urine culture added?) no [facility] 2000 panel - Serum or Plasma 2021-12-07 08:39:00* Test Item Value Reference Range Interpretation Comme nts Glucose [Mass/volume] in Ser um or Plasma (test code = 2345-7) 92 mg/dL 74-106 Urea nitrogen [Mass/volume] in Serum or Plasma (test code = 3094-0) 9 mg/dL 6-20 osmolality calculated,serum (test code = osmolality calculated,serum) 276 mOsm/kg 280-300 L creatinine (test code = creatinine) 0.80 mg/dL 0.50-0.90 glomerular filtration rate ( test code = glomerular filtration rate) >60.00 Urea nitrogen/Creatinine [Ma ss Ratio] in Serum or Plasma (test code = 3097-3) 11.3 12.0-20.0 L sodium level (test code = so dium level) 139 mmol/L 135-145 potassium level (test code = potassium level) 4.4 mmol/L 3.5-5.2 chloride level (test code = chloride level) 103 mmol/L 98-108 CO2 (test code = CO2) 25 mmol/L 21-32 anion gap (test code = anion gap) 15.4 mEq/L 12.0-20.0 calcium level (test code = calcium level) 9.5 mg/dL 8.6-10.0 total protein (test code = t otal protein) 7.3 g/dL 6.6-8.7 albumin (test code = albumin) 4.5 g/dL 3.5-5.2 globulin (test code = globulin) 2.8 g/dL 1.5-4.5 A/G ratio (test code = A/G ratio) 1.6 >1.0 bilirubin,total (test code = bilirubin,total) 0.4 mg/dL 0.0-1.2 AST/SGOT (test code = AST/SGOT) 21 U/L 15-32 Alanine aminotransferase [Enzymatic activity/volume] in Serum or Plasma (test code = 1742-6) 33 U/L 0-33 Alkaline phosphatase [Enzyma tic activity/volume] in Serum or Plasma (test code = 6768-6) 50 U/L 35-105 [facility] 1996 panel - Serum or [id number] 08:39:00* Test Item Value Reference Range Interpretation Comme nts cholesterol level (test code = cholesterol level) 271 mg/dL 150-200 H triglycerides level (test co de = triglycerides level) 338 mg/dL <150 H HDL cholesterol (test code = HDL cholesterol) 39 mg/dL >65 L LDL cholesterol direct (test code = LDL cholesterol direct) 191 mg/dL <100 H cholesterol risk ratio (test code = cholesterol risk ratio) 6.948 [facility] HospitalDifferential panel, method unspecified - [id number] 00:00:00NeutrophilsBandLymphocyteAtypical LymphMonocyteEosinophilBasophilMetamyelocyteMyelocytePromyelocyteBlastsNucleated Red Blood CellDifferential CommentAbs Neutrophil Count (Man)Abs Lymph Count (Man)AbsMonocyte Count (Man)Abs Eosinophil Count (Man)Abs Basophil Count (Man)Platelet EstimatePlatelet Morp hologyHypochromasiaPoikilocytosisAnisocytosisMicrocytosisMacrocytosisTarget CellsStomatocyteToxic GranulationBurr CellsHypersegmented PolysToxic Vacuolation [facility] W Auto Differential panel - [id number] 00:00:00 * Test Item Value Reference Range Interpretation Comme nts white blood count (test code = white blood count) 6.8 K/uL 4.0-11.5 red blood count (test code = red blood count) 4.71 M/uL 3.80-5.20 hemoglobin (test code = hemoglobin) 13.6 g/dL 10.5-15.7 hematocrit (test code = hematocrit) 42.5 % 34.0-50.0 MCV [Entitic volume] (test c ode = 86324-6) 90.2 fL 86.0-100.0 mean corpuscular hemoglobin (test code = mean corpuscular hemoglobin) 28.9 pg 26.2-33.4 mean corpuscular HGB conc (t est code = mean corpuscular HGB conc) 32.0 g/dL 30.0-34.0 red cell distribution width (test code = red cell distribution width) 13.2 % 12.0-15.5 platelet count (test code = platelet count) 304 K/uL 165-450 mean platelet volume (test c ode = mean platelet volume) 11.7 fL 9.4-12.6 Segmented neutrophils/100 leukocytes in Blood (test code = 00817-1) 49.6 % 44.4-80.1 Immature granulocytes [#/vol ume] in Blood (test code = 89499-4) 0.03 K/uL 0.00-0.03 lymphocyte% (test code = lymphocyte%) 36.3 % 10.0-50.0 mono % (test code = mono %) 8.2 % 3.6-12.0 eos % (test code = eos %) 5.1 % 0.0-5.4 Basophils/100 leukocytes in Specimen (test code = 57783-9) 0.4 % 0.1-1.2 Band form neutrophils [#/vol ume] in Blood (test code = 25153-4) 3.37 K/uL 1.56-6.13 Lymphocytes [#/volume] in Sp ecimen by Automated count (test code = 13357-6) 2.47 K/uL 1.18-3.74 mono # (test code = mono #) 0.56 K/uL 0.24-0.86 eos # (test code = eos #) 0.35 K/uL 0.04-0.36 basophil # (test code = baso errol #) 0.03 K/uL 0.01-0.08 NRBC% (test code = NRBC%) 0 /100 WBC 0-0.2 NRBC# (test code = NRBC#) 0 K/uL [facility] HospitalDifferential panel, method unspecified - [id number] 00:00:00NeutrophilsBandLymphocyteAtypical LymphMonocyteEosinophilBasophilMetamyelocyteMyelocytePromyelocyteBlastsNucleated Red Blood CellDifferential CommentAbs Neutrophil Count (Man)Abs Lymph Count (Man)AbsMonocyte Count (Man)Abs Eosinophil Count (Man)Abs Basophil Count (Man)Platelet EstimatePlatelet Morp hologyHypochromasiaPoikilocytosisAnisocytosisMicrocytosisMacrocytosisTarget CellsStomatocyteToxic GranulationBurr CellsHypersegmented PolysToxic Vacuolation [facility] HospitalErythrocyte sedimentation [id number] 00:00:00* Test Item Value Reference Range Interpretation Comme nts erythrocyte sedimentation ra te (test code = erythrocyte sedimentation rate) 12 mm/HR 0.00-20 [facility] HospitalThyrotropin [Units/volume] in Serum or [id number] 00:00:00* Test Item Value Reference Range Interpretation Comme nts Thyrotropin [Units/volume] i n Serum or Plasma (test code = 3016-3) 1.60 uIU/mL 0.36-3.74 [facility] Hospital[facility] reactive protein [Mass/volume] in Serum or Plasma by High sensitivity [id number] 00:00:00* Test Item Value Reference Range Interpretation Comme nts C-reactive protein high sens . (test code = C-reactive protein high sens.) 1.2 mg/L 0.0-5.0 [facility] HospitalCobalamin (Vitamin B12) [Mass/volume] in Serum or Plasma 2021-12-07 00:00:00* Test Item Value Reference Range Interpretation Comme nts vitamin B12 (test code = vit marie B12) 739.0 pg/mL 211-946 folate (test code = folate) >20 4.78-24.2 [facility] HospitalNuclear Ab [Presence] in Serum by Immunofluorescence 2021-12-07 00:00:00* Test Item Value Reference Range Interpretation Comme nts YAZ (antinuclear antibodies) screen, ifa, serum (test code = YAZ (antinuclear antibodies) screen, ifa, serum) neg [facility] HospitalCBC W Auto Differential panel - [id number] 00:00:00 * Test Item Value Reference Range Interpretation Comme nts white blood count (test code = white blood count) 6.8 K/uL 4.0-11.5 red blood count (test code = red blood count) 4.71 M/uL 3.80-5.20 hemoglobin (test code = hemoglobin) 13.6 g/dL 10.5-15.7 hematocrit (test code = hematocrit) 42.5 % 34.0-50.0 MCV [Entitic volume] (test c ode = 29895-5) 90.2 fL 86.0-100.0 mean corpuscular hemoglobin (test code = mean corpuscular hemoglobin) 28.9 pg 26.2-33.4 mean corpuscular HGB conc (t est code = mean corpuscular HGB conc) 32.0 g/dL 30.0-34.0 red cell distribution width (test code = red cell distribution width) 13.2 % 12.0-15.5 platelet count (test code = platelet count) 304 K/uL 165-450 mean platelet volume (test c ode = mean platelet volume) 11.7 fL 9.4-12.6 Segmented neutrophils/100 leukocytes in Blood (test code = 60473-2) 49.6 % 44.4-80.1 Immature granulocytes [#/vol ume] in Blood (test code = 38287-1) 0.03 K/uL 0.00-0.03 lymphocyte% (test code = lymphocyte%) 36.3 % 10.0-50.0 mono % (test code = mono %) 8.2 % 3.6-12.0 eos % (test code = eos %) 5.1 % 0.0-5.4 Basophils/100 leukocytes in Specimen (test code = 48968-1) 0.4 % 0.1-1.2 Band form neutrophils [#/vol ume] in Blood (test code = 26362-1) 3.37 K/uL 1.56-6.13 Lymphocytes [#/volume] in Sp ecimen by Automated count (test code = 28569-7) 2.47 K/uL 1.18-3.74 mono # (test code = mono #) 0.56 K/uL 0.24-0.86 eos # (test code = eos #) 0.35 K/uL 0.04-0.36 basophil # (test code = baso errol #) 0.03 K/uL 0.01-0.08 NRBC% (test code = NRBC%) 0 /100 WBC 0-0.2 NRBC# (test code = NRBC#) 0 K/uL [facility] HospitalDifferential panel, method unspecified - [id number] 00:00:00NeutrophilsBandLymphocyteAtypical LymphMonocyteEosinophilBasophilMetamyelocyteMyelocytePromyelocyteBlastsNucleated Red Blood CellDifferential CommentAbs Neutrophil Count (Man)Abs Lymph Count (Man)AbsMonocyte Count (Man)Abs Eosinophil Count (Man)Abs Basophil Count (Man)Platelet EstimatePlatelet Morp hologyHypochromasiaPoikilocytosisAnisocytosisMicrocytosisMacrocytosisTarget CellsStomatocyteToxic GranulationBurr CellsHypersegmented PolysToxic Vacuolation [facility] HospitalErythrocyte sedimentation [id number] 00:00:00* Test Item Value Reference Range Interpretation Comme nts erythrocyte sedimentation ra te (test code = erythrocyte sedimentation rate) 12 mm/HR 0.00-20 [facility] HospitalThyrotropin [Units/volume] in Serum or [id number] 00:00:00* Test Item Value Reference Range Interpretation Comme nts Thyrotropin [Units/volume] i n Serum or Plasma (test code = 3016-3) 1.60 uIU/mL 0.36-3.74 [facility] HospitalC reactive protein [Mass/volume] in Serum or Plasma by High sensitivity [id number] 00:00:00* Test Item Value Reference Range Interpretation Comme nts C-reactive protein high sens . (test code = C-reactive protein high sens.) 1.2 mg/L 0.0-5.0 [facility] HospitalCobalamin (Vitamin B12) [Mass/volume] in Serum or Plasma 2021-12-07 00:00:00* Test Item Value Reference Range Interpretation Comme nts vitamin B12 (test code = vit marie B12) 739.0 pg/mL 211-946 folate (test code = folate) >20 4.78-24.2 [facility] HospitalNuclear Ab [Presence] in Serum by Immunofluorescence 2021-12-07 00:00:00* Test Item Value Reference Range Interpretation Comme [facility] YAZ (antinuclear antibodies) screen, ifa, serum (test code = YAZ (antinuclear antibodies) screen, ifa, serum) neg [facility] (COVID-19) Ag [Presence] in Respiratory specimen by Rapid [id number] 12:02:00* Test Item Value Reference Range Interpretation Comme [facility] SARS-CoV - 2 (test code = SA RS-CoV - 2) [facility] Mbwmsjib9708-83-44 10:29:00* Test Item Value Reference Range Interpretation Comme [facility] Chemistry - Specials (test code = HCGQ) 59525.33 mIU/mL See Ranges Males and Non females: Less than 10 mIU/mLPregnancy, weeks of gestation mIU/mL 0.2 - 1 week 5 - 50 1 - 2 weeks 50 - 500 2 - 3 weeks 100 - 5,000 3 - 4 weeks 500 - 10,000 4 - 5 weeks 1,000 - 50,000 5 - 6 weeks 10,000 - 100,000 6 - 8 weeks 15,000 - 200,000 2 - 3 months 10,000 - 100,000 Tkghzdieu8606-18-69 09:36:00* Test Item Value Reference Range Interpretation Comme [facility] Chemistry (test code = NA-T) 134 mmol/L 136-145 L Chemistry (test code = K-T) 4.4 mmol/L 3.5-5.1 N Chemistry (test code = CL) 103 mmol/L 98-107 N Chemistry (test code = CO2) 25 mmol/L 22-29 N Chemistry (test code = ANGP) 10 mmol/L 10-20 N Chemistry (test code = BUN) 8 mg/dL 7.0-18.7 N Chemistry (test code = CREATT) 0.74 mg/dL 0.6-1.1 N Chemistry (test code = EGFRMDRD) Greater than 90 Reference Range for Estimated GFR: Greater than 90 mL/min/1.73 m2NOTE:The MDRD equation has not been validated for use with theelderly (over 70 years of age), women, patientswith serious comorbid condition or persons with extremes ofbody size, muscle mass, or nutritional status. Chemistry (test code = GLU-T) 85 mg/dL 70-105 N Chemistry (test code = CA) 9.6 mg/dL 7.8-10.44 N Chemistry (test code = TBILI-T) 0.4 mg/dL 0.2-1.2 N Chemistry (test code = TP) 7.0 g/dL 6.0-8.3 N Chemistry (test code = ALB) 4.1 g/dL 3.5-5.0 N Chemistry (test code = GLOB) 2.9 g/dL 2.4-3.5 N Chemistry (test code = AG) 1.4 g/dL 1.2-2.2 N Chemistry (test code = ALP) 50 U/L 40-150 N Chemistry (test code = AST) 26 U/L 5-34 N Chemistry (test code = ALT) 42 U/L 8-55 N Chemistry - Wtlzddac2831-82-23 11:49:00* Test Item Value Reference Range Interpretation Comme [facility] Chemistry - Specials (test code = HCGQ) 06831.33 mIU/mL See Ranges Males and Non females: Less than 10 mIU/mLPregnancy, weeks of gestation mIU/mL 0.2 - 1 week 5 - 50 1 - 2 weeks 50 - 500 2 - 3 weeks 100 - 5,000 3 - 4 weeks 500 - 10,000 4 - 5 weeks 1,000 - 50,000 5 - 6 weeks 10,000 - 100,000 6 - 8 weeks 15,000 - 200,000 2 - 3 months 10,000 - 100,000 Laboratory Ypjqpvg0803-72-09 10:45:00* Test Item Value Reference Range Interpretation Comme [facility] 63263-9 (test code = 92175-9) 43824.33 mIU/mL [facility]Kakixtti2120-14-02 17:36:00* Test Item Value Reference Range Interpretation Comme [facility] Accuchek (test code = ACU) 80 mg/dL 70-110 N Ztdejhrdu0436-43-14 13:35:00* Test Item Value Reference Range Interpretation Comme [facility] Chemistry (test code = NA-T) 138 mmol/L 136-145 N Chemistry (test code = K-T) 4.6 mmol/L 3.5-5.1 N Chemistry (test code = CL) 106 mmol/L 98-107 N Chemistry (test code = CO2) 23 mmol/L 22-29 N Chemistry (test code = ANGP) 14 mmol/L 10-20 N Chemistry (test code = BUN) 9 mg/dL 7.0-18.7 N Chemistry (test code = CREATT) 0.77 mg/dL 0.6-1.1 N Chemistry (test code = EGFRMDRD) Greater than 90 Reference Range for Estimated GFR: Greater than 90 mL/min/1.73 m2NOTE:The MDRD equation has not been validated for use with theelderly (over 70 years of age), women, patientswith serious comorbid condition or persons with extremes ofbody size, muscle mass, or nutritional status. Chemistry (test code = GLU-T) 85 mg/dL 70-105 N Chemistry (test code = CA) 10.0 mg/dL 7.8-10.44 N Chemistry (test code = TBILI-T) 0.6 mg/dL 0.2-1.2 N Chemistry (test code = TP) 7.7 g/dL 6.0-8.3 N Chemistry (test code = ALB) 4.6 g/dL 3.5-5.0 N Chemistry (test code = GLOB) 3.1 g/dL 2.4-3.5 N Chemistry (test code = AG) 1.5 g/dL 1.2-2.2 N Chemistry (test code = ALP) 56 U/L 40-150 N Chemistry (test code = AST) 17 U/L 5-34 N Chemistry (test code = ALT) 23 U/L 8-55 N Comment use blood in labRetype Verify-Blood Type Oq2223-45-25 13:22:00* Test Item Value Reference Range Interpretation Comme [facility] Blood Type Rh (test code = BT) A POSITIVE Type Xladwv1921-57-70 13:16:00* Test Item Value Reference Range Interpretation Comme [facility] Blood Type Rh (test code = BT) A POSITIVE Antibody Screen (test code = ABSC) NEGATIVE Received Blood Or Been w/in Past 90 Days? UNKNOWNComment stefani 5 Chemistry - Mhwxfxjr3627-28-01 13:16:00* Test Item Value Reference Range Interpretation Comme [facility] Chemistry - Specials (test code = HCGQ) 09114.41 mIU/mL See Ranges Males and Non females: Less than 10 mIU/mLPregnancy, weeks of gestation mIU/mL 0.2 - 1 week 5 - 50 1 - 2 weeks 50 - 500 2 - 3 weeks 100 - 5,000 3 - 4 weeks 500 - 10,000 4 - 5 weeks 1,000 - 50,000 5 - 6 weeks 10,000 - 100,000 6 - 8 weeks 15,000 - 200,000 2 - 3 months 10,000 - 100,000 [facility] Djcltkz4205-99-91 12:58:00* Test Item Value Reference Range Interpretation Comme [facility] [id number] (test code = AFA0375) 80 mg/dL 70-110 [facility]Muzlulugug6087-86-03 12:29:00* Test Item Value Reference Range Interpretation Comme [facility] Hematology (test code = WBCT) 12.3 thou/uL 4.8-10.8 H Hematology (test code = RBCT) 4.50 mill/uL 4.20-5.40 N Hematology (test code = HGBT) 13.6 g/dL 12.0-16.0 N Hematology (test code = HCTT) 40.5 % 36.0-47.0 N Hematology (test code = MCV) 89.9 fL 78.0-98.0 N Hematology (test code = MCH) 30.2 pg 27.0-31.0 N Hematology (test code = MCHC) 33.6 g/dL 32.0-36.0 N Hematology (test code = RDW) 12.6 % 11.5-14.5 N Hematology (test code = PLTT) 286 thou/uL 130-400 N Hematology (test code = MPV) 9.1 fL 7.4-10.4 N Hematology (test code = %NEUT) 66.0 % 42.0-75.0 N Hematology (test code = %LYMPH) 25.2 % 21.0-51.0 N Hematology (test code = %MONO) 6.8 % 0.0-10.0 N Hematology (test code = %EOS) 1.4 % 0.0-10.0 N Hematology (test code = %BASO) 0.6 % 0.0-1.0 N Hematology (test code = NEUT#) 8.1 thou/uL 1.40-6.50 H Hematology (test code = LYMPH#) 3.1 thou/uL 1.20-3.40 N Hematology (test code = MONO#) 0.8 thou/uL 0.11-0.59 H Hematology (test code = EOS#) 0.2 thou/uL 0.0-0.7 N Hematology (test code = BASO#) 0.1 thou/uL 0.0-0.2 N Laboratory Hekizcq0404-82-25 12:20:00* Test Item Value Reference Range Interpretation Comme nts 2885-2 (test code = 2885-2) 7.7 g/dL 6.0-8.3 [facility])Laboratory Ucnzlmc1223-82-78 12:20:00* Test Item Value Reference Range Interpretation Comme nts 2823-3 (test code = 2823-3) 4.6 mmol/L 3.5-5.1 [facility])Laboratory Opfhxmf6559-78-07 12:20:00* Test Item Value Reference Range Interpretation Comme nts 2345-7 (test code = 2345-7) 85 mg/dL 70-105 [facility])Laboratory Aplntdt8955-13-45 12:20:00* Test Item Value Reference Range Interpretation Comme nts 76872-8 (test code = 49527-3) 3.1 g/dL 2.4-3.5 [facility])Laboratory Uvohxgo5517-92-08 12:20:00* Test Item Value Reference Range Interpretation Comme nts 2160-0 (test code = 2160-0) 0.77 mg/dL 0.6-1.1 [facility])Laboratory Pftfktu4605-10-71 12:20:00* Test Item Value Reference Range Interpretation Comme nts 2075-0 (test code = 2075-0) 106 mmol/L 98-107 [facility])Laboratory Lhhhfln6774-01-23 12:20:00* Test Item Value Reference Range Interpretation Comme nts 2028-9 (test code = 2028-9) 23 mmol/L 22-29 [facility])Laboratory Ljzdzox1513-13-44 12:20:00* Test Item Value Reference Range Interpretation Comme nts 92363-7 (test code = 37697-2) 10.0 mg/dL 7.8-10.44 [facility])Laboratory Qpeelkl7899-62-20 12:20:00* Test Item Value Reference Range Interpretation Comme nts 3094-0 (test code = 3094-0) 9 mg/dL 7.0-18.7 [facility])Laboratory Vpiunpa7267-74-35 12:20:00* Test Item Value Reference Range Interpretation Comme nts 1920-8 (test code = 1920-8) 17 U/L 5-34 [facility])Laboratory Zykfpba4018-60-15 12:20:00* Test Item Value Reference [place]ts [address]2000-8 (test code = 39915-7) 14 mmol/L 10-20 [facility])Laboratory Irprayt9886-56-00 12:20:00* Test Item Value Reference Range Interpretation Comme nts 6768-6 (test code = 6768-6) 56 U/L 40-150 [facility])Laboratory Jnddmpk6548-19-88 12:20:00* Test Item Value Reference Range Interpretation Comme nts 1759-0 (test code = 1759-0) 1.5 g/dL 1.2-2.2 [facility])Laboratory Rctltjy0555-01-23 12:20:00* Test Item Value Reference Range Interpretation [place] nts 36391-6 (test code = 00502-8) 4.6 g/dL 3.5-5.0 [facility])Laboratory Sqfpnmt2004-97-17 12:20:00* Test Item Value Reference Range Interpretation Comme nts 1744-2 (test code = 1744-2) 23 U/L 8-55 [facility])Laboratory Dvfksja8106-13-21 12:20:00* Test Item Value Reference Range Interpretation Comme nts 6690-2 (test code = 6690-2) 12.3 thou/uL 4.8-10.8 [facility] Tfgihws7822-87-83 12:20:00* Test Item Value Reference Range Interpretation Comme nts 788-0 (test code = 788-0) 12.6 % 11.5-14.5 [facility])Laboratory Jwlxrzu1736-89-93 12:20:00* Test Item Value Reference Range Interpretation Comme nts 789-8 (test code = 789-8) 4.50 mill/uL 4.20-5.40 [facility])Laboratory Ihlhvsi3639-92-97 12:20:00* Test Item Value Reference Range Interpretation Comme nts 777-3 (test code = 777-3) 286 thou/uL 130-400 [facility])Laboratory Ubpdjea7764-20-67 12:20:00* Test Item Value Reference Range Interpretation Comme nts 770-8 (test code = 770-8) 66.0 % 42.0-75.0 [facility])Laboratory Lbqfafo2108-93-69 12:20:00* Test Item Value Reference Range Interpretation Comme nts 751-8 (test code = 751-8) 8.1 thou/uL 1.40-6.50 H [facility])Laboratory Zddrhtb2207-48-09 12:20:00* Test Item Value Reference Range Interpretation Comme nts 5905-5 (test code = 5905-5) 6.8 % 0.0-10.0 [facility])Laboratory Uqdvzjj7232-15-66 12:20:00* Test Item Value Reference Range Interpretation Comme nts 742-7 (test code = 742-7) 0.8 thou/uL 0.11-0.59 [facility] Cdzsvii5041-74-18 12:20:00* Test Item Value Reference Range Interpretation Comme nts 75875-5 (test code = 05921-9) 9.1 fL 7.4-10.4 [facility])Laboratory Kqiqbkj6887-12-44 12:20:00* Test Item Value Reference Range Interpretation Comme nts 787-2 (test code = 787-2) 89.9 fL 78.0-98.0 [facility])Laboratory Qriiilq5015-04-11 12:20:00* Test Item Value Reference Range Interpretation Comme nts 786-4 (test code = 786-4) 33.6 g/dL 32.0-36.0 [facility])Laboratory Oikecdh8603-82-06 12:20:00* Test Item Value Reference Range Interpretation Comme nts 785-6 (test code = 785-6) 30.2 pg 27.0-31.0 [facility])Laboratory Wtutyua8957-69-37 12:20:00* Test Item Value Reference Range Interpretation Comme nts 736-9 (test code = 736-9) 25.2 % 21.0-51.0 [facility])Laboratory Tdfbjlj8889-91-72 12:20:00* Test Item Value Reference Range Interpretation Comme nts 731-0 (test code = 731-0) 3.1 thou/uL 1.20-3.40 [facility])Laboratory Akckhtj7387-86-86 12:20:00* Test Item Value Reference Range Interpretation Comme nts 718-7 (test code = 718-7) 13.6 g/dL 12.0-16.0 [facility])Laboratory Otmvtok6744-08-34 12:20:00* Test Item Value Reference Range Interpretation Comme nts 713-8 (test code = 713-8) 1.4 % 0.0-10.0 [facility])Laboratory Sesjtgj5424-36-69 12:20:00* Test Item Value Reference Range Interpretation Comme nts 711-2 (test code = 711-2) 0.2 thou/uL 0.0-0.7 [facility] Tnrveag1680-80-63 12:20:00* Test Item Value Reference Range Interpretation Comme nts 706-2 (test code = 706-2) 0.6 % 0.0-1.0 [facility])Laboratory Nrsfxzt7789-81-35 12:20:00* Test Item Value Reference Range Interpretation Comme nts 704-7 (test code = 704-7) 0.1 thou/uL 0.0-0.2 [facility])Laboratory Llylikq5331-32-41 12:20:00* Test Item Value Reference Range Interpretation Comme nts 1975-2 (test code = 1975-2) 0.6 mg/dL 0.2-1.2 [facility])Laboratory Rudagvv0821-36-00 12:20:00* Test Item Value Reference Range Interpretation Comme nts 2951-2 (test code = 2951-2) 138 mmol/L 136-145 [facility])Laboratory Okjzpcw6275-69-32 12:20:00Estimated GFR (MDRD)[facility])Laboratory Riwcawp7642-95-45 12:54:00* Test Item Value Reference Range Interpretation Comme nts 2132-9 (test code = 2132-9) 614 pg/mL 211-911 [facility])Laboratory Jtcnjch4050-69-70 12:54:00* Test Item Value Reference Range Interpretation Comme nts 2284-8 (test code = 2284-8) 11.60 ng/mL 7.0-31.4 [facility])Laboratory Pdaxvzo9641-45-79 12:54:00* Test Item Value Reference Range Interpretation Comme nts 2839-9 (test code = 2839-9) 10.50 ng/mL [facility])Laboratory Mapavzg2232-45-25 12:54:00* Test Item Value Reference Range Interpretation Comme nts 65619-4 (test code = 42427-3) 1.5855 uIU/mL 0.35-4.94 [facility]MRI Pelvis W WO [facility] Pt Name: RIO JENSEN [facility] [address] Phys: [place] [address] : 1990 Age: 29 SEX:F [phone] Exam Date: 06/08/19 Status: DEP CLI Acct: [id number] Loc: [facility] Pt Unit #: [id number] Report #: [id number] CC: Allie Berry MD MRI REPORT Order # Category/Exam [id number] MRI/MRI Pelvis W WO Con ([id number]): . Results MRI OF THE PELVIS WITHOUT AND WITH CONTRAST: History: 29-year-old female with mass seen on ultrasound at outside institution. Comparison: Report from pelvic ultrasound, 05-29-19. Technique: Multiplanar, multisequence MRI images were obtained of the pelvis without and with IV contrast. FINDINGS: There is a 3.3 cm well circumscribed mass along the right aspect of the uterine fundus. This likely represents an intramural fibroid. The junctional zone of the uterus is normal in thickness. No nabothian cysts are seen. There is no evidence for a bicornuate or septate uterus. There are multiple similar appearing follicles along the periphery of both ovaries. A trace amount of free fluid is seen in the pelvis. No pelvic adenopathy is seen. No marrow signal abnormality is present. IMPRESSION: 1. Uterine fibroid. 2. Similar appearing follicles along the periphery of the ovaries may be secondary to polycystic ovarian syndrome. POS: [facility] Reported By: Guillermo Jennings MD Electronically Signed Date/Time: 06/09/19 0723 Technologist: ABDIAS Dictated Date/Time: 06/08/19 1138 Transcribed Date/Time: 06/08/19 5761 Notes Date/Time Note Provider Source 2019-01-09 18:36:00 [id number]:36:00[facility] Name: RIO JENSEN : 1990, Age: 28, Sex: [place] [id number] Unit #: [id number], Status: [place] [facility] [phone] [place] [facility] Dictated by: Allie Berry MD Admission Date: Report #: [id number] Discharge Date: CC: OUT OF TOWN PHYSICIAN Allie Berry MD HISTORY AND PHYSICAL REPORT CHIEF COMPLAINT: Interstitial ectopic . HISTORY OF PRESENT ILLNESS: This is a 28-year-old, G1, P0, at approximately 8 weeks 2 days gestation by last menstrual period, who initially presented at the end of November to the ER for spotting and pelvic cramping with a positive test. At that time, she had what appeared to be a pseudosac in her uterus or a gestational sac and was given warnings and diagnosed with a threatened . She followed up a week later, and at that time in my office, the patient was continuing to have spotting, passing small clots at times, and did no longer have a gestational sac in the uterus. She declined medical management at that time, and she followed up a week later and had a new finding on ultrasound with continued spotting and cramping of a sac growing what appeared to be in the cornua of the uterus, and it was suspected that the patient had an angular or a uterine anomaly. A week later, which was today, January 09, she arrived to my office. She was stable. Vital signs are within normal limits, and she had an ultrasound that showed a growing sac in the interstitium based on the myometrial mantle being less than 5 mm and there was no pole, no cardiac activity, consistent with a nonviable and most likely an interstitial . There is no free fluid on ultrasound, and the gestational sac is measuring approximately 2.5 x 2.5 cm. She denies any fever. She states there is a small amount of vaginal bleeding. She is not in severe pain. She has been taking tramadol p.r.n. at home for pain. REVIEW OF SYSTEMS: Negative except as noted in HPI. ALLERGIES: NO KNOWN DRUG ALLERGIES. MEDICATIONS: 1. Alprazolam 0.25 mg p.o. p.r.n. anxiety. 2. Escitalopram 10 mg p.o. daily. 3. Levocetirizine 5 mg p.o. daily. 4. Metformin ER 500 mg p.o. at bedtime. 5. Propranolol 20 mg p.o. b.i.d. 6. Tramadol 50 mg p.o. q.6 hours p.r.n. PAST MEDICAL HISTORY: Allergies, polycystic ovaries, migraines, asthma, ADHD, depression, anxiety, seasonal affective disorder. FAMILY HISTORY: Hypertension, hyperlipidemia, diabetes, breast cancer in maternal grandmother. SOCIAL HISTORY: Negative x3. PAST SURGICAL HISTORY: Sinus surgery and wisdom teeth. 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 No abnormal Paps. No STDs. OB HISTORY: G1, P0. PHYSICAL EXAMINATION: VITAL SIGNS: Blood pressure 117/76, pulse is 75, respirations 18, O2 saturation 95% on room air, temperature 97.7, weight is 224. GENERAL: No acute distress. Alert and oriented x3. CARDIAC: Regular rate and rhythm. LUNGS: Nonlabored breathing and clear. ABDOMEN: Soft, nontender, nondistended. EXTREMITIES: No edema, cyanosis, or clubbing. PELVIC: Deferred. LABORATORY DATA: hCG is 25,717. Creatinine 0.77, BUN 9, AST 17, ALT 23. CBC: White blood cells 12.3, hemoglobin 13.6, hematocrit 40.5, platelets 286. Blood type is A positive. Antibody screen negative. ASSESSMENT AND PLAN: A 28-year-old, G1, P0, at 8 weeks 2 days by last menstrual period with interstitial . I have discussed with the patient this is a nonviable . There is not a pole present. At this point, we should see a pole, and even if this were the case, this is not able to be completed to term as this would surely rupture and could be potentially life-threatening for the patient. She was explained options including the option of surgery versus the option of a trial of medical management with methotrexate. She does have a high beta which might decrease her chance of succeeding slightly. I still feel like her chances are around 75% of being able to successfully dissolve the with this treatment, and she would then avoid having a surgery where she could potentially lose her tube and also have an incision in the active part of the fundus that would require C-sections at 37 week in subsequent pregnancies and increase risk of rupture should the patient go into labor. This was discussed with the patient and her in detail. The risks of methotrexate were discussed. She has no contraindications. Her labs are normal, and the patient states she can be compliant with followup that we will use a multidose regimen and she will return on day 3 for beta and potentially for re-dosing if it does not decrease by 15%. Today, she will receive methotrexate 100 mg IV x1 and leucovorin 10 mg p.o. x1. Avoidances including avoiding folic acid, nonsteroidal anti-inflammatories, and sunlight were discussed with the patient as well as the side effects of methotrexate and the need to avoid for the next 3 months secondary to the teratogenicity of methotrexate. The patient and understand and wished to proceed. Job ID: [id number] Dictated by: Allie Berry MD <Electronically signed by Allie Berry MD> 01/22/19 1050 K Dictated Date/Time: 01/09/19 1405 Transcribed Date/Time: 01/09/19 1833 Senior Information Security Analyst: AUREA HPHistory and physical examinationBecky MillsModalUserM*Slvzq7248-65-27V90:36:00HIST ORY AND PHYSICAL [id number] for patient carePERAna AlvarezArjbejyBRDOSMCQZSYH0212-89-90K84:51:37 Allie Berry STLSJH
[2023-08-02] MEDS ORDERED: ONDANSETRON 4 MG/2 ML VIAL ONE (12:22)
[2023-08-02] MEDS ORDERED: MORPHINE 4 MG/ML SYR ONE (12:22)
[2023-08-02] MEDS ORDERED: NA CHLORIDE 0.9% 1,000 ML ONE (12:22)
[2023-08-02 12:36] LABS: Absolute Lymphocytes (CBC) 2.5 K/uL (0.7-4.9); Hematocrit 39.7 % (36.0-45.0); Lymphocytes % 22.8 % (15.3-44.8); MCV 89.1 fL (80-100); MPV 10.6 fL (7.6-11.3); Platelets 292 thou/uL (152-406); RBC Red Blood Cell Count 4.46 M/uL (3.86-4.86)
[2023-08-02 12:36] LABS: Specific Gravity 1.028 (1.005-1.030)
[2023-08-02 12:42] LABS: Specific Gravity 1.028 (1.005-1.030); Urine Bacteria None Seen /HPF (<20); Urine Bilirubin NEGATIVE (Negative); Urine Blood 2+ (Negative); Urine Clarity Clear (Clear); Urine Color Light-Yellow (Yellow); Urine Glucose NEGATIVE (Negative); Urine Mucus 2+ /HPF (None Seen); Urine Protein TRACE (Negative); Urine RBC <5 /HPF (None Seen); Urine Urobilinogen Normal (Normal); Urine pH 5.5 (5.0-7.0)
[2023-08-02 12:54] LABS: Albumin 3.7 g/dL (3.4-5.0); Bilirubin Direct 0.1 mg/dL (0-0.2); Bilirubin Indirect, Calculated 0.4 mg/dL (0.2-0.8); Bilirubin Total 0.5 mg/dL (0.2-1.0); Protein, Total 7.6 g/dL (6.4-8.2)
--- NOTE | 2023-08-02 13:02 | RAD REPORT ---
EXAM DESCRIPTION: US - Transvaginal Study Probe - 08/02/2023 12:38 pm CLINICAL HISTORY: ABD PAIN Pelvic pain. COMPARISON: No comparisons FINDINGS: The uterus is normal in size, shape and echotexture. The uterus measures 6.0 x 3.4 x 3.3 c m. The endometrial stripe measures 8 mm, normal. Both ovaries are normal in size, shape and echotexture. The right ovary measures 3.4 x 1.8 x 1.8 cm. The left ovary measures 3.0 x 2.0 x 1.9 cm. Mild fluid/echogenic material seen surrounding the righ t ovary which may be related to blood product. Left adnexa appears unremarkable. Normal Doppler blood flow was demonstrated to both ovaries. No significant pelvic ascites. IMPRESSION: Mild fluid/ echogenic material adjacent to the right ovary could be related recent cyst rupture.Follow-up pelvic sonogram would be advised in 3-6 months to ensure resolution.
--- NOTE | 2023-08-02 14:09 | EDPHYS ---
Physician Documentation [facility] Name: Amber Connor Age: 33 yrs Sex: Female : 1990 Arrival Date: 08/02/2023 Time: 11:50 Bed 15 Private MD: ED Physician Javi Tesfaye HPI: 08/02 15:34 This 33 yrs old Female presents to ER via Ambulatory with complaints of OVARY PAIN. rt 15:34 Patient with history of PCOS and previous heterotopic treated with rt methotrexate presents to the ED with several days of her pain to the right ovary consistent with prior episode of ectopic , states that she has had vaginal spotting intermittently over the past several days. Denies other acute complaints at this time, symptoms are moderate in severity, no aggravating or elevating factors. 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 - Social history:: Smoking status: Patient denies any tobacco usage or history of. ROS: 15:35 Constitutional: Negative for fever, chills, and weight loss, Cardiovascular: Negative rt for chest pain, palpitations, and edema, Respiratory: Negative for shortness of breath, cough, wheezing, and pleuritic chest pain, MS/Extremity: Negative for injury and deformity, Skin: Negative for injury, rash, and discoloration, Neuro: Negative for headache, weakness, numbness, tingling, and seizure, 15:35 Abdomen/GI: Positive for abdominal pain, Negative for nausea, 15:35 : Positive for vaginal bleeding, Negative for burning with urination, Exam: 15:35 Constitutional: This is a well developed, well nourished patient who is awake, alert, rt and in no acute distress. Head/Face: Normocephalic, atraumatic. Chest/axilla: Normal chest wall appearance and motion. Nontender with no deformity. No lesions are appreciated. Cardiovascular: Regular rate and rhythm with a normal S1 and S2. No gallops, murmurs, or rubs. Normal PMI, no JVD. No pulse deficits. Respiratory: Lungs have equal breath sounds bilaterally, clear to auscultation and percussion. No rales, rhonchi or wheezes noted. No increased work of breathing, no retractions or nasal flaring. Abdomen/GI: Soft, non-tender, with normal bowel sounds. No distension or tympany. No guarding or rebound. No evidence of tenderness throughout. Skin: Warm, dry with normal turgor. Normal color with no rashes, no lesions, and no evidence of cellulitis. MS/ Extremity: Pulses equal, no cyanosis. Neurovascular intact. Full, normal range of motion. Neuro: Awake and alert, GCS 15, oriented to person, place, time, and situation. Cranial nerves II-XII grossly intact. Motor strength 5/5 in all extremities. Sensory grossly intact. Cerebellar exam normal. Normal gait. Psych: Awake, alert, with orientation to person, place and time. Behavior, mood, and affect are within normal limits. Vital Signs: 12:00 BP 120 / 74; Pulse 78; Resp 16; Pulse Ox 100% on R/A; Weight 106.59 kg; Height 5 ft. 9 hb in. ; Pain 6/10; 13:12 BP 115 / 68; Pulse 77; Resp 16; Pulse Ox 99% on R/A; Pain 3/10; nj1 15:11 BP 135 / 86; Pulse 79; Resp 16; Pulse Ox 100% on R/A; Pain 3/10; nj1 12:00 Body Mass Index 34.70 (106.59 kg, 175.26 cm) hb 12:00 Pain Scale: Adult hb 13:12 Pain Scale: Adult nj1 15:11 Pain Scale: Adult nj1 MDM: 11:56 Patient medically screened. rt 15:35 Differential Diagnosis Ectopic, threatened AB, missed AB. Data reviewed: vital signs, rt lab test result(s), radiologic studies. Consideration of Admission/Observation Escalation of care including admission/observation considered. I considered the following discharge prescriptions or medication management in the emergency department Medications were administered in the Emergency Department. See MAR. Test considered but Not performed: CT: Low suspicion for appendicitis, CT scan indicated. Care significantly affected by the following chronic conditions: PCOS. Counseling: I had a detailed discussion with the patient and/or guardian regarding the historical points, exam findings, and any diagnostic results supporting the discharge/admit diagnosis, lab results, radiology results, I had a long discussion with the patient regarding possibility of early , missed AB, ectopic, she will follow-up closely for repeat hCG, imaging. She will return for worsening symptoms.. Response to treatment: the patient's symptoms have markedly improved after treatment. 08/02 12:04 Order name: Basic Metabolic Panel; Complete Time: 13:14 rt 12 12:04 Order name: CBC with Diff; Complete Time: 12:50 rt 12 12:04 Order name: Test, Urine; Complete Time: 12:50 rt 12 12:04 Order name: Urinalysis w/ reflexes; Complete Time: 12:50 rt 12 12:05 Order name: LFT's; Complete Time: 13:14 rt 12 13:05 Order name: HCG, Quantitative; Complete Time: 13:36 EDMS 08/02 12:13 Order name: Transvaginal Study Probe; Complete Time: 13:14 EDMS 08/02 12:04 Order name: IV Saline Lock; Complete Time: 12:25 rt 12 12:04 Order name: Labs collected and sent; Complete Time: 12:25 rt 08/02 12:04 Order name: NPO; Complete Time: 12:06 rt Administered Medications: 12:22 Drug: Ondansetron IVP 4 mg IVP once; over 2 minutes Route: IVP; Site: left antecubital; nj1 13:17 Follow up: Response: No adverse reaction nj1 12:22 Drug: NS 0.9% IV 1000 ml IV at 1000 ml once Route: IV; Rate: 1000 ml; Site: left nj1 antecubital; 15:15 Follow up: Response: No adverse reaction; IV Status: Completed infusion nj1 12:24 Drug: morphine IVP or IV 4 mg IVP once over 4 mins Route: IVP; Infused Over: 4 mins; nj1 Site: left antecubital; 13:17 Follow up: Response: No adverse reaction; Pain is decreased nj1 14:59 Drug: Acetaminophen PO 1000 mg PO once Route: PO; nj1 15:12 Follow up: Response: No adverse reaction nj1 Disposition Summary: 08/02/23 14:08 Discharge Ordered Notes: Location: Home rt Problem: new rt Symptoms: have improved rt Condition: Stable rt Diagnosis - of undetermined location rt Followup: rt - With: Private Physician - When: 2 - 3 days - Reason: Repeat Beta-HCG (48 Hours) Discharge Instructions: - Discharge Summary Sheet rt - Ectopic rt - Vaginal Bleeding During , First Trimester rt Forms: - Medication Reconciliation Form rt - Thank You Letter rt - Antibiotic Education rt - Prescription Opioid Use rt - Patient Portal Instructions rt - Leadership Thank You Letter rt Signatures: Dispatcher [employer] EDPamella Lester, CHLOÉ LUEVANO Javi Tesfaye MD MD rt Mackenzie Monet RN RN nj1 Corrections: (The following items were deleted from the chart) 12:13 12:05 Pelvis Complete+US.RAD.BRZ ordered. EDMS EDMS 13:04 12:05 TEST, SERUM+SC.LAB.BRZ ordered. EDMS EDMS
--- NOTE | 2023-08-02 14:09 | ER ---
Nurse's Notes [facility] Name: Amber Connor Age: 33 yrs Sex: Female : 1990 Arrival Date: 08/02/2023 Time: 11:50 Bed 15 Private MD: Diagnosis: of undetermined location Presentation: 08/02 12:00 Chief complaint: Patient states: RLQ abdominal pain that radiates down right leg onset hb 2 weeks ago. Pt states that the pain has been intermittent but got worse today. Pt also reports nausea and spotting. Coronavirus screen: Vaccine status: Patient reports being unvaccinated. Client denies travel out of the [place] in the last 14 days. Ebola Screen: Patient denies travel to an Ebola-affected area in the 21 days before illness onset. No symptoms or risks identified at this time. Initial Sepsis Screen: Does the patient meet any 2 criteria? No. Patient's initial sepsis screen is negative. Does the patient have a suspected source of infection? No. Patient's initial sepsis screen is negative. Risk Assessment: Do you want to hurt yourself or someone else? Patient reports no desire to harm self or others. Onset of symptoms was August 02, 2023. 12:00 Method Of Arrival: Ambulatory hb 12:00 Acuity: ALBA 3 hb CVICU NURSE: 12:02 LMP 07/22/2023, unknown hb Historical: - Allergies: 12:02 No Known Allergies; hb - PMHx: 12:02 PCOS; Ectopic ; hb - Immunization history:: Adult Immunizations unknown. - Social history:: Smoking status: Patient denies any tobacco usage or history of. Screenin:15 [facility] ED Fall Risk Assessment (Adult) Score/Fall Risk Level 0 - 2 = Low Risk nj1 Oriented to surroundings, Maintained a safe environment, Hourly rounding (assess needs \T\ fall precautionary measures) done. Abuse screen: Denies threats or abuse. Denies injuries from another. Nutritional screening: No deficits noted. 12:15 Tuberculosis screening: No symptoms or risk factors identified. nj1 Assessment: 12:15 General: Appears in no apparent distress. comfortable, Behavior is calm, cooperative, nj1 appropriate for age. Pain: Complains of pain in right lower quadrant Pain currently is 6 out of 10 on a pain scale. 12:15 Pain: Quality of pain is described as sharp. Neuro: Level of Consciousness is awake, nj1 alert, obeys commands, Oriented to person, place, time, situation. Cardiovascular: Patient's skin is warm and dry. Respiratory: Airway is patent Respiratory effort is even, unlabored. 13:17 Reassessment: Patient appears in no apparent distress at this time. Patient and/or nj1 family updated on plan of care and expected duration. Pain level reassessed. Patient is alert, oriented x 3, equal unlabored respirations, skin warm/dry/pink. Patient states feeling better. Patient states symptoms have improved. 15:12 Reassessment: Patient appears in no apparent distress at this time. Patient and/or nj1 family updated on plan of care and expected duration. Pain level reassessed. Patient is alert, oriented x 3, equal unlabored respirations, skin warm/dry/pink. Patient states feeling better. Patient states symptoms have improved. Vital Signs: 12:00 BP 120 / 74; Pulse 78; Resp 16; Pulse Ox 100% on R/A; Weight 106.59 kg; Height 5 ft. 9 hb in. ; Pain 6/10; 13:12 BP 115 / 68; Pulse 77; Resp 16; Pulse Ox 99% on R/A; Pain 3/10; nj1 15:11 BP 135 / 86; Pulse 79; Resp 16; Pulse Ox 100% on R/A; Pain 3/10; nj1 12:00 Body Mass Index 34.70 (106.59 kg, 175.26 cm) hb 12:00 Pain Scale: Adult hb 13:12 Pain Scale: Adult nj1 15:11 Pain Scale: Adult nj1 ED Course: 11:53 Patient arrived in ED. mg5 11:54 Mackenzie Monet, CHLOÉ is Primary Nurse. nj1 11:55 Javi Tesfaye MD is Attending Physician. rt 12:02 Triage completed. hb 12:02 Arm band placed on Patient placed in an exam room, on a stretcher. hb 12:15 Patient has correct armband on for positive identification. Bed in low position. Call nj1 light in reach. Adult w/ patient. 12:15 Provided Education on: call light, fall precautions. nj1 12:22 Inserted saline lock: 20 gauge in left antecubital area, using aseptic technique. aw1 12:40 Transvaginal Study Probe In Process Unspecified. EDMS 15:15 No provider procedures requiring assistance completed. IV discontinued, intact, nj1 bleeding controlled. Administered Medications: 12:22 Drug: Ondansetron IVP 4 mg IVP once; over 2 minutes Route: IVP; Site: left antecubital; nj1 13:17 Follow up: Response: No adverse reaction nj1 12:22 Drug: NS 0.9% IV 1000 ml IV at 1000 ml once Route: IV; Rate: 1000 ml; Site: left nj1 antecubital; 15:15 Follow up: Response: No adverse reaction; IV Status: Completed infusion nj1 12:24 Drug: morphine IVP or IV 4 mg IVP once over 4 mins Route: IVP; Infused Over: 4 mins; nj1 Site: left antecubital; 13:17 Follow up: Response: No adverse reaction; Pain is decreased nj1 14:59 Drug: Acetaminophen PO 1000 mg PO once Route: PO; nj1 15:12 Follow up: Response: No adverse reaction nj1 Medication: 15:16 VIS not applicable for this client. nj1 Outcome: 14:08 Discharge ordered by . rt 15:15 Discharged to home ambulatory, nj1 15:15 Condition: stable 15:15 Discharge instructions given to patient, Instructed on discharge instructions, follow up and referral plans. Demonstrated understanding of instructions, follow-up care, 15:16 Patient left the ED. nj1 Signatures: Dispatcher [employer] EDMS Pamella Shaver RN RN Javi Tesfaye MD MD rt Mackenzie Monet RN RN nj1 Tiffanie Justin aw1 Angelica Panda mg5 Corrections: (The following items were deleted from the chart) 15:14 15:13 [facility] ED Fall Risk Assessment (Adult) Score/Fall Risk Level 0 - 2 = Low Risk nj1 Oriented to surroundings, Maintained a safe environment, Hourly rounding (assess needs \T\ fall precautionary measures) done, nj1 15:14 15:13 Abuse screen: Denies threats or abuse. Denies injuries from another. nj1 nj1 15:14 15:13 Nutritional screening: No deficits noted. nj1 nj1
[2023-08-02] MEDS ORDERED: ACETAMINOPHEN 500 MG TAB ONE (15:12)
[2023-08-02 15:56] VITALS: BP 135/86; O2SAT 100
== END 2023-08-02 15:16 | disposition home or self-care (01) ==
LOC: ER 11:50
DX: O36.80X0 Pregnancy with inconclusive fetal viability, not applicable or unspecified (principal)
CPT/HCPCS: 96361; 85025; 81001; 80048; 36415; 81025; 80076; 84702; 76830; 96375; 96374; 99284; J2405; J7030